=== PATIENT | female | born 1975 | race Caucasian/White ===

== ENCOUNTER → 2018-08-04 | Outpatient (CLI) | payer OTHER ==
[~2018-08-04] MED LIST: CIPRO500 MG PO; PERCOCET 5/321 UDTAB PO; TOPROL XL25 M1 PO
== END | disposition home or self-care (01) ==
LOC: MAMO-SONO 14:22
DX: R10.2 Pelvic and perineal pain (principal); N63.10 Unspecified lump in the right breast, unspecified quadrant; N63.20 Unspecified lump in the left breast, unspecified quadrant; Z12.31 Encounter for screening mammogram for malignant neoplasm of breast

== ENCOUNTER 2019-02-20 13:11 | Outpatient (CLI) | payer OTHER | END 2019-02-20 13:16 | disposition home or self-care (01) | LOC: SONOGRAMA 13:11 | DX: N60.02 Solitary cyst of left breast (principal); N60.11 Diffuse cystic mastopathy of right breast; N60.12 Diffuse cystic mastopathy of left breast ==

== ENCOUNTER 2019-02-22 16:58 | Emergency (ER) | payer OTHER ==
[~2019-02-22] VITALS: Ht 167.6 cm; Wt 83.5 kg
== END 2019-02-22 19:15 | disposition home or self-care (01) ==
LOC: ER 16:58
DX: M62.838 Other muscle spasm (principal); M25.512 Pain in left shoulder

== ENCOUNTER → 2019-04-24 | Outpatient (CLI) | payer OTHER | END | disposition home or self-care (01) | LOC: RX STUDY 13:40 | DX: R10.32 Left lower quadrant pain (principal); K64.8 Other hemorrhoids; K59.09 Other constipation ==

== ENCOUNTER 2019-11-17 14:58 | Inpatient (IN) | payer OTHER ==
[~2019-11-17] VITALS: Ht 167.6 cm; Wt 83.5 kg
[2019-11-28] MEDS ORDERED: PROPRANOLOL HCL10 MG PO (15:12)
[2019-11-28] MEDS ORDERED: PROBIOTIC1 EAC2 PO (15:13)
[2019-11-28] MEDS ORDERED: ALLERGY RELIEF10 M4 PO (15:13)
[2019-11-28] MEDS ORDERED: LEVOTHYROXINE25 MCG PO (15:13)
[2019-11-28] MEDS ORDERED: BENEFIBER144 GM PO (15:14)
[2019-11-28] MEDS ORDERED: ZINC50 M1 PO (15:14)
[2019-11-28] MEDS ORDERED: VITAMIN C100 MG PO (15:14)
[2019-11-28] MEDS ORDERED: MAGNESIUM500 MG PO (15:15)
[2019-11-28] MEDS ORDERED: VITAMIN D3125 MC2 PO (15:15)
[2019-12-06] MEDS ORDERED: DICLOFENAC SODI75 MG PO (10:24)
[2019-12-06] MEDS ORDERED: VITAMIN C500 M1 PO (10:27)
[2019-12-09] MEDS ORDERED: HYOSCYAMINE0.125 M1 SL (12:41)
[2019-12-09] MEDS ORDERED: OXYC1TAB9 PO (12:41)
== END 2019-12-09 13:06 | disposition home or self-care (01) | DRG 331 ==
LOC: O/R 12-06 06:00 → SURG 12-06 06:00 → SURH 12-06 09:15 → SURG 12-06 16:45
PROVIDERS: ADMIT Surgery; ATTEND Surgery
PROC: 0DJD8ZZ Inspection of Lower Intestinal Tract, Via Natural or Artificial Opening Endoscopic (ICD-10-PCS; 2019-12-06)
PROC: 0DBN4ZZ Excision of Sigmoid Colon, Percutaneous Endoscopic Approach (ICD-10-PCS; principal; 2019-12-06 09:15)
DX: K59.09 Other constipation (principal); K66.0 Peritoneal adhesions (postprocedural) (postinfection)

== ENCOUNTER 2019-12-05 06:45 | Day surgery (SDC) | payer OTHER ==
[~2019-12-05 06:45] MED LIST changes: +ALLERGY RELIEF10 M4 PO; +BENEFIBER144 GM PO; +LEVOTHYROXINE25 MCG PO; +MAGNESIUM500 MG PO; +PROBIOTIC1 EAC2 PO; +PROPRANOLOL HCL10 MG PO; +VITAMIN C100 MG PO; +VITAMIN D3125 MC2 PO; +ZINC50 M1 PO
[2019-12-06] MEDS ORDERED: DICLOFENAC SODI75 MG PO (10:24)
[2019-12-06] MEDS ORDERED: VITAMIN C500 M1 PO (10:27)
== END 2019-12-05 14:45 | disposition home or self-care (01) ==
LOC: AMB-ENDOS 06:45
PROVIDERS: ATTEND Surgery
DX: K62.89 Other specified diseases of anus and rectum (principal)

== ENCOUNTER 2020-05-29 10:43 | Outpatient (CLI) | payer OTHER ==
[~2020-05-29 10:43] MED LIST changes: +DICLOFENAC SODI75 MG PO; +HYOSCYAMINE0.125 M1 SL; +OXYC1TAB9 PO; +VITAMIN C500 M1 PO
== END 2020-05-29 10:46 | disposition home or self-care (01) ==
LOC: SONOGRAMA 10:43 → MAMO-SONO 12:45
PROVIDERS: ATTEND Surgery
DX: N60.11 Diffuse cystic mastopathy of right breast (principal); N60.12 Diffuse cystic mastopathy of left breast; R10.2 Pelvic and perineal pain

== ENCOUNTER 2020-09-09 08:00 | Outpatient (CLI) | payer OTHER | END 2020-09-09 14:53 | disposition home or self-care (01) | LOC: LAB 08:00 | PROVIDERS: ATTEND Internal Medicine Cardiovascular Disease | DX: N60.11 Diffuse cystic mastopathy of right breast (principal); N60.12 Diffuse cystic mastopathy of left breast ==

== ENCOUNTER 2020-09-09 09:20 | Outpatient (CLI) | payer OTHER | END 2020-09-09 09:25 | disposition home or self-care (01) | LOC: RAD 09:20 | PROVIDERS: ATTEND Surgery | DX: N60.11 Diffuse cystic mastopathy of right breast (principal); N60.12 Diffuse cystic mastopathy of left breast ==

== ENCOUNTER 2020-09-09 09:34 | Outpatient (CLI) | payer OTHER | END 2020-09-09 09:36 | disposition home or self-care (01) | LOC: NUCLEAR 09:34 | PROVIDERS: ATTEND Internal Medicine Cardiovascular Disease | DX: I87.2 Venous insufficiency (chronic) (peripheral) (principal); M81.0 Age-related osteoporosis without current pathological fracture; E55.9 Vitamin D deficiency, unspecified ==

== ENCOUNTER 2021-05-20 10:46 | Outpatient (CLI) | payer OTHER | END 2021-05-20 11:02 | disposition home or self-care (01) | LOC: SONOGRAMA 10:46 | PROVIDERS: ATTEND Surgery | DX: N60.11 Diffuse cystic mastopathy of right breast (principal); N60.12 Diffuse cystic mastopathy of left breast ==

== ENCOUNTER 2021-07-31 09:20 | Outpatient (CLI) | payer OTHER | END 2021-07-31 09:25 | disposition home or self-care (01) | LOC: SONOGRAMA 09:20 | PROVIDERS: ATTEND Pathology Anatomic Pathology & Clinical Pathology | DX: E04.2 Nontoxic multinodular goiter (principal) ==

== ENCOUNTER 2022-09-29 11:07 | Outpatient (CLI) | payer OTHER | END 2022-09-29 11:18 | disposition home or self-care (01) | LOC: RAD 11:07 | PROVIDERS: ATTEND Surgery | DX: E04.1 Nontoxic single thyroid nodule (principal); N60.11 Diffuse cystic mastopathy of right breast; N60.12 Diffuse cystic mastopathy of left breast; M54.9 Dorsalgia, unspecified; M53.3 Sacrococcygeal disorders, not elsewhere classified ==

== ENCOUNTER 2023-10-26 12:09 | Outpatient (CLI) | payer OTHER | END 2023-10-26 12:10 | disposition home or self-care (01) | LOC: NUCLEAR 12:09 | PROVIDERS: ATTEND Internal Medicine | DX: M81.0 Age-related osteoporosis without current pathological fracture (principal) ==

== ENCOUNTER 2023-10-26 14:14 | Outpatient (CLI) | payer OTHER | END 2023-10-26 14:18 | disposition home or self-care (01) | LOC: MAMO-SONO 14:14 | PROVIDERS: ATTEND Surgery | DX: N60.11 Diffuse cystic mastopathy of right breast (principal); N60.12 Diffuse cystic mastopathy of left breast ==

== ENCOUNTER 2023-11-01 16:38 | Outpatient (CLI) | payer OTHER | END 2023-11-01 16:39 | disposition home or self-care (01) | LOC: TOM 16:38 | DX: R10.9 Unspecified abdominal pain (principal); R10.2 Pelvic and perineal pain ==